=== PATIENT | female | born 1990 | race Caucasian/White ===

== ENCOUNTER 2025-03-17 17:21 | Emergency (ER) | payer MEDICAID, SELFPAY ==
[2025-03-17 17:35] VITALS: BP 136/86; PULSE 84; RESP 18; TEMP 37.2; O2SAT 98; BMI 37.8
--- NOTE | 2025-03-17 17:39 | PD.EDDENTL ---
ED Dental RME/HPI General Chief complaint: Dental/Oral/Throat Stated complaint: ABSCESS MOUTH R SIDE Time Seen by Provider: 03/17/25 17:24 Arrival date/time: 03/17/25 17:21 44-year-old female presents emergency department today with complaints of right upper dental pain reports symptoms ongoing for the last few days patient has seen a dentist and they put her on a prescription for Augmentin today patient reports the symptoms have not improved yet and is requesting a shot there are no other associated symptoms or aggravating factors no other modifying factors, patient denies taking medication before coming to ER today Limitations: no limitations Related Data Home Medications ?Medication ?Instructions ?Recorded ?Confirmed sertraline 100 mg tablet (Zoloft) 100 mg PO QDAY 04/11/19 06/08/19 Previous Rx's ?Medication ?Instructions ?Recorded docusate sodium 100 mg capsule 100 mg PO BID #14 caps 04/11/19 (Doc-Q-Lace) hydrocortisone 2.5 % topical cream 1 applicatio [place] QDAY PRN 04/11/19 with perineal applicator hemorrhoids #30 grams (Anusol-HC) ciprofloxacin HCl 500 mg tablet 500 mg PO BID #14 tabs 06/09/23 (Cipro) clindamycin HCl 150 mg capsule 450 mg (3 x 150 mg) PO TID 7 days 03/17/25 #63 caps Allergies Allergy/AdvReac Type Severity Reaction Status Date / Time No Known Allergies Allergy Verified 03/17/25 17:24 Review of Systems Review of Systems Systems Reviewed: All systems reviewed, normal except as documented Constitutional Constitutional: Reports system reviewed and no additional complaints, except as documented, Denies fatigue, Denies fever(s) and Denies headache(s) Eyes Eyes: Reports system reviewed and no additional complaints, except as documented and Denies blurry vision ENT Ears, Nose, Mouth, and Throat: Reports system reviewed and no additional complaints, except as documented, Denies headache(s), Denies nasal congestion, Denies nasal discharge and Reports other (Poor dentition dental pain) Cardiovascular Cardiovascular: Reports system reviewed and no additional complaints, except as documented, Denies chest pain and Denies dyspnea Respiratory Respiratory: Reports system reviewed and no additional complaints, except as documented, Denies chest congestion, Denies cough and Denies dyspnea Gastrointestinal Gastrointestinal: Reports system reviewed and no additional complaints, except as documented and Denies abdominal pain Genitourinary Genitourinary: Reports system reviewed and no additional complaints, except as documented, Denies flank pain, Denies hematuria and Denies pelvic pain Musculoskeletal Musculoskeletal: Reports system reviewed and no additional complaints, except as documented, Denies abnormal gait, Denies numbness, Denies stiffness and Denies tingling Integumentary/Breasts Skin/Breast: Reports system reviewed and no additional complaints, except as documented and Denies rash Neurologic Neurologic: Reports system reviewed and no additional complaints, except as documented, Reports as per HPI, Denies abnormal gait, Denies headache(s), Denies numbness and Denies tingling Psychiatric Psychiatric: Reports system reviewed and no additional complaints, except as documented and Denies anxiety Endocrine Endocrine: Denies fatigue Past Medical History Past Medical History CARDIAC: Negative Congestive Heart Failure RESPIRATORY: Negative Chronic Obstructive Pulmonary Disease (COPD) GASTROINTESTINAL: Positive Gastrointestinal Disorders (CHOLI) GENITOURINARY: Negative Renal Disease ENDOCRINE: Negative Diabetes Mellitus Type 1 or Diabetes Mellitus Type 2 PSYCHO/SOCIAL: Positive Anxiety Social History SMOKING STATUS: Current every day smoker ED Exam General Limitations: Present no limitations General appearance: Present alert and in no apparent distress Head Head exam: Present atraumatic Eye Eye exam: Present normal appearance, PERRL and EOMI ENT ENT exam: Present mucous membranes moist and other (Poor dentition dental pain) Neck Neck exam: Present normal inspection, full ROM and trachea midline Chest Chest inspection: Present normal inspection and symmetric chest wall rise Respiratory Respiratory exam: Present normal lung sounds bilaterally Cardiovascular Cardiovascular exam: Present regular rate, normal rhythm and normal heart sounds Abdominal Exam Abdominal exam: Present soft and normal bowel sounds Extremities Exam Extremities exam: Present normal inspection and full ROM Back Exam Back exam: Present normal inspection and full ROM Neurological Exam Neurological exam: Present alert, oriented X3 and CN II-XII intact Psychiatric Psychiatric exam: Present normal affect and normal mood Skin Skin exam: Present warm, dry, intact and normal color Course Quality Measures none Orders Category Date Time Status Lidocaine 1% 20 ml [Xylocaine 1% 20 ML] Med 03/17/25 17:39 Discontinued 2.1 ml INFL X1 ONE cefTRIAXone [Rocephin] Med 03/17/25 17:39 Discontinued 1,000 mg IM X1 ONE Vital Signs Vital signs: Vital Signs Temperature 99.0 F 03/17/25 17:35 Pulse Rate 84 03/17/25 17:35 Respiratory Rate 18 03/17/25 17:35 Blood Pressure 136/86 H 03/17/25 17:35 Pulse Oximetry (%) 98 03/17/25 17:35 Oxygen Delivery Method Room Air 03/17/25 17:35 O2 saturation 98% room air within normal limits Dental / Oral MDM Narrative MDM Narrative:: 44-year-old female presents emergency department today with complaints of right upper dental pain reports symptoms ongoing for the last few days patient has seen a dentist and they put her on a prescription for Augmentin today patient reports the symptoms have not improved yet and is requesting a shot there are no other associated symptoms or aggravating factors no other modifying factors, patient denies taking medication before coming to ER today Patient has no trismus no hoarseness of voice no difficulty breathing or swallowing patient hemodynamically stable On exam patient well-appearing patient does not appear ill or toxic in no acute distress Based on symptomatology patient has dental abscess patient given Rocephin and discharged on clindamycin Patient decided to follow-up with dentist soon as possible Patient data External records reviewed:: [facility] previous records Clinical information provided by:: patient Social determinants that could affect healthcare access:: none Patient has the following chronic illnesses:: None How is presenting disease/condition affected by chronic disease/condition?: no chronic disease Evaluation data The following diagnostics were reviewed and interpreted by me:: other (specify) Lab and/or radiology exams considered but not ordered:: Consider not order Interpretation Summary: N/A Medications / Prescriptions Medications or Prescriptions considered but not ordered:: Given Medication administrations:: Medication Administration History Discontinued Medications Ceftriaxone Sodium (Ceftriaxone Sod Inj 1,000 Mg Vial) 1,000 mg IM X1 ONE Stop: 03/17/25 17:40 Last Admin: 03/17/25 17:58 Dose: 1,000 mg Documented By: BRY Lidocaine HCl (Lidocaine Hcl 1% 20 Ml Vial) 2.1 ml INFL X1 ONE Stop: 03/17/25 17:40 Last Admin: 03/17/25 17:59 Dose: 2.1 ml Documented By: BRY Given Consultations Consultation(s) initiated? (list below): No Diagnosis Dental Differential Diagnosis: gingival abscess, dental caries, toothache and dental abscess Most likely diagnosis given after review of the tests above:: Dental abscess Admission Indicated Admission indicated?: not indicated Admission Request Was there a request for admission?: No Disposition Plan Disposition Plan: Discharge Discharge Attestation Discharge Attestation: The patient and all family members were given an opportunity to ask questions and understood the discharge instructions. Discharge instructions specifically effects, indications for sooner follow up or return to the emergency department, and the expected course of current diagnosis. Patient condition: Stable Discharge Plan Plan Patient Disposition: HOME (Self Care) Disposition Comment: Stable Prescriptions/Referrals Prescriptions/Med Rec: New clindamycin HCl 150 mg capsule 450 mg PO TID 7 Days Qty: 63 0RF No Action sertraline [Zoloft] 100 mg Tablet 100 mg PO QDAY docusate sodium [Doc-Q-Lace] 100 mg capsule 100 mg PO BID Qty: 14 0RF hydrocortisone [Anusol-HC] 2.5 % cream with perineal applicator 1 applicatio [place] QDAY PRN (Reason: hemorrhoids) Qty: 30 0RF ciprofloxacin HCl [Cipro] 500 mg tablet 500 mg PO BID Qty: 14 0RF Problem List Clinical Impression: Abscess, dental Patient/Caregiver Discharge Instructions Education Materials: Dental Abscess Additional Instructions: Please follow-up with dentist as discussed for worsening symptoms return immediately Print Language: Monegasque Stand Alone Forms: Shaylee Award Info., Patient Portal Info Letter PA/[employer] Supervising Physician PA/NANETTE Supervising Physician: Dr Lynn
[2025-03-17] MEDS: cefTRIAXone SOD INJ 1,000 MG VIAL 1000 MG IM (17:58)
[2025-03-17] MEDS: LIDOCAINE HCL 1% 20 ML VIAL 2.1 ML INFL (17:59)
== END 2025-03-17 18:01 | disposition home or self-care (01) ==
LOC: SERX 17:57
PROVIDERS: Emergency Provider Emergency Medicine; PCP Physician Assistant
DX: K04.7 Periapical abscess without sinus (principal)
CPT/HCPCS: 96372; 99283; J0696; J3490

== ENCOUNTER 2025-03-19 16:10 | Emergency (ER) | payer MEDICAID, SELFPAY ==
[2025-03-19 16:11] VITALS: BMI 37.8
[2025-03-19 16:29] VITALS: BP 132/88; PULSE 118; RESP 18; TEMP 37.2; O2SAT 99
--- NOTE | 2025-03-19 16:29 | PD.EDDENTL ---
ED Dental RME/HPI General Chief complaint: Allergic Reaction Stated complaint: ALLERGIC REACTION Time Seen by Provider: 03/19/25 16:18 Arrival date/time: 03/19/25 16:10 34-year-old female currently being treated for a dental infection presents to the emergency room today for complaint of right-sided facial swelling patient reports no difficulty breathing or swallowing Limitations: no limitations Related Data Home Medications ?Medication ?Instructions ?Recorded ?Confirmed sertraline 100 mg tablet (Zoloft) 100 mg PO QDAY 04/11/19 06/08/19 Previous Rx's ?Medication ?Instructions ?Recorded docusate sodium 100 mg capsule 100 mg PO BID #14 caps 04/11/19 (Doc-Q-Lace) hydrocortisone 2.5 % topical cream 1 applicatio [place] QDAY PRN 04/11/19 with perineal applicator hemorrhoids #30 grams (Anusol-HC) ciprofloxacin HCl 500 mg tablet 500 mg PO BID #14 tabs 06/09/23 (Cipro) clindamycin HCl 150 mg capsule 450 mg (3 x 150 mg) PO TID 7 days 03/17/25 #63 caps Allergies Allergy/AdvReac Type Severity Reaction Status Date / Time No Known Allergies Allergy Verified 03/19/25 16:13 Review of Systems Review of Systems Systems Reviewed: All systems reviewed, normal except as documented Constitutional Constitutional: Reports system reviewed and no additional complaints, except as documented, Denies fever(s) and Denies headache(s) Eyes Eyes: Reports system reviewed and no additional complaints, except as documented and Denies blurry vision ENT Ears, Nose, Mouth, and Throat: Reports system reviewed and no additional complaints, except as documented, Denies headache(s), Denies nasal congestion, Denies nasal discharge and Reports other (Right-sided facial swelling) Cardiovascular Cardiovascular: Reports system reviewed and no additional complaints, except as documented, Denies chest pain and Denies dyspnea Respiratory Respiratory: Reports system reviewed and no additional complaints, except as documented, Denies chest congestion, Denies cough and Denies dyspnea Gastrointestinal Gastrointestinal: Reports system reviewed and no additional complaints, except as documented and Denies abdominal pain Integumentary/Breasts Skin/Breast: Reports system reviewed and no additional complaints, except as documented and Denies rash Neurologic Neurologic: Reports system reviewed and no additional complaints, except as documented, Reports as per HPI and Denies headache(s) Past Medical History Past Medical History CARDIAC: Negative Congestive Heart Failure RESPIRATORY: Negative Chronic Obstructive Pulmonary Disease (COPD) GASTROINTESTINAL: Positive Gastrointestinal Disorders (CHOLI) GENITOURINARY: Negative Renal Disease ENDOCRINE: Negative Diabetes Mellitus Type 1 or Diabetes Mellitus Type 2 PSYCHO/SOCIAL: Positive Anxiety Social History SMOKING STATUS: Current some day smoker ED Exam General Limitations: Present no limitations General appearance: Present alert and in no apparent distress Head Head exam: Present atraumatic Eye Eye exam: Present normal appearance, PERRL and EOMI ENT ENT exam: Present mucous membranes moist and other (Dental pain right-sided facial swelling) Neck Neck exam: Present normal inspection, full ROM and trachea midline Chest Chest inspection: Present normal inspection and symmetric chest wall rise Respiratory Respiratory exam: Present normal lung sounds bilaterally Cardiovascular Cardiovascular exam: Present regular rate, normal rhythm and normal heart sounds Abdominal Exam Abdominal exam: Present soft and normal bowel sounds Extremities Exam Extremities exam: Present normal inspection and full ROM Back Exam Back exam: Present normal inspection and full ROM Neurological Exam Neurological exam: Present alert, oriented X3 and CN II-XII intact Psychiatric Psychiatric exam: Present normal affect and normal mood Skin Skin exam: Present warm, dry, intact and normal color Course Quality Measures none Orders Category Date Time Status Ibuprofen Tab [Motrin Tab] Med 03/19/25 16:28 Discontinued 800 mg PO X1 ONE Lidocaine 1% 20 ml [Xylocaine 1% 20 ML] Med 03/19/25 16:28 Discontinued 2.1 ml INFL X1 ONE cefTRIAXone [Rocephin] Med 03/19/25 16:28 Discontinued 1,000 mg IM X1 ONE Vital Signs Vital signs: Vital Signs Temperature 99 F 03/19/25 16:29 Pulse Rate 118 H 03/19/25 16:29 Respiratory Rate 18 03/19/25 16:29 Blood Pressure 132/88 H 03/19/25 16:29 Pulse Oximetry (%) 99 03/19/25 16:29 Oxygen Delivery Method Room Air 03/19/25 16:29 O2 saturation 9 9% room air within the limits Dental / Oral MDM Narrative MDM Narrative:: 34-year-old female currently being treated for a dental infection presents to the emergency room today for complaint of right-sided facial swelling patient reports no difficulty breathing or swallowing Reports he is follow-up with dentist on Thursday Patient given an injection of Rocephin here told to continue taking antibiotics at home and return tomorrow for repeat antibiotic injection For emergent concerns patient struck to return immediately Patient data External records reviewed:: [facility] records Clinical information provided by:: patient Social determinants that could affect healthcare access:: none Patient has the following chronic illnesses:: None How is presenting disease/condition affected by chronic disease/condition?: no chronic disease Evaluation data The following diagnostics were reviewed and interpreted by me:: other (specify) Lab and/or radiology exams considered but not ordered:: Consider not ordered Interpretation Summary: N/A Medications / Prescriptions Medications or Prescriptions considered but not ordered:: Given Medication administrations:: Medication Administration History Discontinued Medications Ceftriaxone Sodium (Ceftriaxone Sod Inj 1,000 Mg Vial) 1,000 mg IM X1 ONE Stop: 03/19/25 16:29 Last Admin: 03/19/25 16:49 Dose: 1,000 mg Documented By: BENJAMIN Ibuprofen (Ibuprofen Tab 400 Mg Tablet) 800 mg PO X1 ONE Stop: 03/19/25 16:29 Last Admin: 03/19/25 16:49 Dose: 800 mg Documented By: BENJAMIN Lidocaine HCl (Lidocaine Hcl 1% 20 Ml Vial) 2.1 ml INFL X1 ONE Stop: 03/19/25 16:29 Last Admin: 03/19/25 16:50 Dose: 2.1 ml Documented By: BENJAMIN Given Consultations Consultation(s) initiated? (list below): No Diagnosis Dental Differential Diagnosis: gingival abscess, dental caries, toothache and dental abscess Most likely diagnosis given after review of the tests above:: Dental abscess Admission Indicated Admission indicated?: not indicated Admission Request Was there a request for admission?: No Disposition Plan Disposition Plan: Discharge Discharge Attestation Discharge Attestation: The patient and all family members were given an opportunity to ask questions and understood the discharge instructions. Discharge instructions specifically effects, indications for sooner follow up or return to the emergency department, and the expected course of current diagnosis. Patient condition: Stable Discharge Plan Plan Patient Disposition: HOME (Self Care) Disposition Comment: Stable Prescriptions/Referrals Prescriptions/Med Rec: No Action sertraline [Zoloft] 100 mg Tablet 100 mg PO QDAY docusate sodium [Doc-Q-Lace] 100 mg capsule 100 mg PO BID Qty: 14 0RF hydrocortisone [Anusol-HC] 2.5 % cream with perineal applicator 1 applicatio [place] QDAY PRN (Reason: hemorrhoids) Qty: 30 0RF ciprofloxacin HCl [Cipro] 500 mg tablet 500 mg PO BID Qty: 14 0RF clindamycin HCl 150 mg capsule 450 mg PO TID 7 Days Qty: 63 0RF Problem List Clinical Impression: Abscess, dental Patient/Caregiver Discharge Instructions Education Materials: Dental Abscess Additional Instructions: Please return tomorrow for repeat Rocephin injection and keep your appointment on Thursday with your dentist for worsening symptoms return immediately Print Language: [place] Stand Alone Forms: Shaylee Award Info., Patient Portal Info Letter PA/[employer] Supervising Physician PA/[employer] Supervising Physician: Dr. souza
[2025-03-19] MEDS: IBUPROFEN TAB 400 MG TABLET 800 MG PO (16:49)
[2025-03-19] MEDS: cefTRIAXone SOD INJ 1,000 MG VIAL 1000 MG IM (16:49)
[2025-03-19] MEDS: LIDOCAINE HCL 1% 20 ML VIAL 2.1 ML INFL (16:50)
== END 2025-03-19 17:08 | disposition home or self-care (01) ==
LOC: SERX 16:47
PROVIDERS: Emergency Provider Family Medicine; PCP Family Medicine
DX: K04.7 Periapical abscess without sinus (principal)
CPT/HCPCS: 96372; 99283; J0696; J3490; A9270

== ENCOUNTER 2025-03-20 08:42 | Emergency (ER) | payer MEDICAID, SELFPAY ==
[2025-03-20 08:42] VITALS: BMI 37.8
[2025-03-20 08:55] VITALS: BP 121/79; PULSE 86; RESP 18; TEMP 37.1; O2SAT 98
--- NOTE | 2025-03-20 08:59 | PD.EDALLER ---
ED Allergic Reaction RME/HPI General Chief complaint: Allergic Reaction Stated complaint: ALLERGIC REACTION TO ROCEPHIN Time Seen by Provider: 03/20/25 08:50 Arrival date/time: 03/20/25 08:42 34-year-old female presents the emergency room today for complaints of allergic reaction to Rocephin patient was seen by myself on last visit and given Rocephin for dental infection Limitations: no limitations Related Data Home Medications ?Medication ?Instructions ?Recorded ?Confirmed sertraline 100 mg tablet (Zoloft) 100 mg PO QDAY 04/11/19 06/08/19 Previous Rx's ?Medication ?Instructions ?Recorded docusate sodium 100 mg capsule 100 mg PO BID #14 caps 04/11/19 (Doc-Q-Lace) hydrocortisone 2.5 % topical cream 1 applicatio NE QDAY PRN 04/11/19 with perineal applicator hemorrhoids #30 grams (Anusol-HC) ciprofloxacin HCl 500 mg tablet 500 mg PO BID #14 tabs 06/09/23 (Cipro) clindamycin HCl 150 mg capsule 450 mg (3 x 150 mg) PO TID 7 days 03/17/25 #63 caps diphenhydramine HCl 25 mg capsule 25 mg PO Q8H PRN allergic symptoms 03/20/25 (Benadryl) #30 caps prednisone 10 mg tablet 30 mg (3 x 10 mg) PO BID 3 days 03/20/25 #18 tabs Allergies Allergy/AdvReac Type Severity Reaction Status Date / Time ceftriaxone (From Rocephin) Allergy Severe SWELLING Verified 03/20/25 08:45 OF FACE Review of Systems Review of Systems Systems Reviewed: All systems reviewed, normal except as documented Constitutional Constitutional: Reports system reviewed and no additional complaints, except as documented, Denies fever(s) and Denies headache(s) Eyes Eyes: Reports system reviewed and no additional complaints, except as documented and Denies blurry vision ENT Ears, Nose, Mouth, and Throat: Reports system reviewed and no additional complaints, except as documented, Reports dental pain, Reports facial pain, Denies headache(s), Denies nasal congestion and Denies nasal discharge Cardiovascular Cardiovascular: Reports system reviewed and no additional complaints, except as documented, Denies chest pain and Denies dyspnea Respiratory Respiratory: Reports system reviewed and no additional complaints, except as documented, Denies chest congestion, Denies cough and Denies dyspnea Gastrointestinal Gastrointestinal: Reports system reviewed and no additional complaints, except as documented and Denies abdominal pain Integumentary/Breasts Skin/Breast: Reports system reviewed and no additional complaints, except as documented and Denies rash Neurologic Neurologic: Reports system reviewed and no additional complaints, except as documented, Reports as per HPI and Denies headache(s) Past Medical History Past Medical History CARDIAC: Negative Congestive Heart Failure RESPIRATORY: Negative Chronic Obstructive Pulmonary Disease (COPD) GASTROINTESTINAL: Positive Gastrointestinal Disorders (CHOLI) GENITOURINARY: Negative Renal Disease ENDOCRINE: Negative Diabetes Mellitus Type 1 or Diabetes Mellitus Type 2 PSYCHO/SOCIAL: Positive Anxiety Social History SMOKING STATUS: Current every day smoker ED Exam General Limitations: Present no limitations General appearance: Present alert and in no apparent distress Head Head exam: Present atraumatic Eye Eye exam: Present normal appearance, PERRL and EOMI ENT ENT exam: Present mucous membranes moist and other (Dental pain facial swelling) Neck Neck exam: Present normal inspection, full ROM and trachea midline Chest Chest inspection: Present normal inspection and symmetric chest wall rise Respiratory Respiratory exam: Present normal lung sounds bilaterally Cardiovascular Cardiovascular exam: Present regular rate, normal rhythm and normal heart sounds Abdominal Exam Abdominal exam: Present soft and normal bowel sounds Extremities Exam Extremities exam: Present normal inspection and full ROM Back Exam Back exam: Present normal inspection and full ROM Neurological Exam Neurological exam: Present alert, oriented X3, CN II-XII intact, normal gait and reflexes normal; Absent motor sensory deficit Psychiatric Psychiatric exam: Present normal affect and normal mood Skin Skin exam: Present warm, dry, intact and normal color Course Quality Measures none Orders Category Date Time Status Ampicillin/Sulbac Inj [Unasyn Inj] Med 03/20/25 08:59 Discontinued 3 gm IM X1 ONE Dexamethasone Inj [Decadron Inj] Med 03/20/25 08:59 Discontinued 10 mg PO X1 ONE DiphenhydrAMINE [Benadryl] Med 03/20/25 08:59 Discontinued 25 mg PO X1 ONE Sterile Water Med 03/20/25 09:15 Discontinued 6.4 ml IM X1 ONE Vital Signs Vital signs: Vital Signs Temperature 98.7 F 03/20/25 08:55 Pulse Rate 86 03/20/25 08:55 Respiratory Rate 18 03/20/25 08:55 Blood Pressure 121/79 03/20/25 08:55 Pulse Oximetry (%) 98 03/20/25 08:55 Oxygen Delivery Method Room Air 03/20/25 08:55 O2 saturation 98% room air within normal limits Allergic Reaction MDM Narrative MDM Narrative:: 34-year-old female presents the emergency room today for complaints of allergic reaction to Rocephin patient was seen by myself on last visit and given Rocephin for dental infection On exam patient has no urticaria or rash I do not believe the patient is having a reaction to the Rocephin rather this is swelling from the infection that she went on [employer] I figured she had an infection based on what it said Clinically patient has no difficulty breathing or swallowing patient does have swelling of her face Patient given dose of Unasyn here instructed to follow-up with dentist tomorrow after worsening symptoms to return immediately Patient data External records reviewed:: [facility] previous records Clinical information provided by:: patient Social determinants that could affect healthcare access:: none Patient has the following chronic illnesses:: See history How is presenting disease/condition affected by chronic disease/condition?: exacerbated by Evaluation data The following diagnostics were reviewed and interpreted by me:: other (specify) Lab and/or radiology exams considered but not ordered:: Consider not order Interpretation Summary: N/A Medications / Prescriptions Medications or Prescriptions considered but not ordered:: Given Medication administrations:: Medication Administration History Discontinued Medications Ampicillin Sodium/Sulbactam Sodium (Ampicillin/Sulbac Inj 3 Gm Vial) 3 gm IM X1 ONE Stop: 03/20/25 09:00 Last Admin: 03/20/25 09:23 Dose: 3 gm Documented By: RONEN Dexamethasone Sodium Phosphate (Dexamethasone Sod Phos Inj 10 Mg/Ml Vial) 10 mg PO X1 ONE Stop: 03/20/25 09:00 Last Admin: 03/20/25 09:22 Dose: 10 mg Documented By: LP Diphenhydramine HCl (Diphenhydramine 25 Mg Capsule) 25 mg PO X1 ONE Stop: 03/20/25 09:00 Last Admin: 03/20/25 09:22 Dose: 25 mg Documented By: RONEN Sterile Water (Water, Sterile Inj 10 Ml Vial) 6.4 ml IM X1 ONE Stop: 03/20/25 09:16 Last Admin: 03/20/25 09:23 Dose: 6.4 ml Documented By: LP Given Consultations Consultation(s) initiated? (list below): No Diagnosis Differential Diagnosis allergic reaction: anaphylaxis, allergic reaction, angioedema and contact dermatitis Most likely diagnosis given after review of the tests above:: Facial pain Admission Indicated Admission indicated?: not indicated Admission Request Was there a request for admission?: No Disposition Plan Disposition Plan: Discharge Discharge Attestation Discharge Attestation: The patient and all family members were given an opportunity to ask questions and understood the discharge instructions. Discharge instructions specifically effects, indications for sooner follow up or return to the emergency department, and the expected course of current diagnosis. Patient condition: Stable Discharge Plan Plan Patient Disposition: HOME (Self Care) Disposition Comment: Stable Prescriptions/Referrals Prescriptions/Med Rec: New prednisone 10 mg tablet 30 mg PO BID 3 Days Qty: 18 0RF diphenhydramine HCl [Benadryl] 25 mg capsule 25 mg PO Q8H PRN (Reason: allergic symptoms) Qty: 30 0RF No Action sertraline [Zoloft] 100 mg Tablet 100 mg PO QDAY docusate sodium [Doc-Q-Lace] 100 mg capsule 100 mg PO BID Qty: 14 0RF hydrocortisone [Anusol-HC] 2.5 % cream with perineal applicator 1 applicatio NE QDAY PRN (Reason: hemorrhoids) Qty: 30 0RF ciprofloxacin HCl [Cipro] 500 mg tablet 500 mg PO BID Qty: 14 0RF clindamycin HCl 150 mg capsule 450 mg PO TID 7 Days Qty: 63 0RF Problem List Clinical Impression: Dental infection Patient/Caregiver Discharge Instructions Education Materials: Dental Abscess Additional Instructions: Please follow-up dentist tomorrow as discussed for worsening symptoms return immediately Print Language: Wallisian Stand Alone Forms: Shaylee Award Info., Patient Portal Info Letter PA/ENDOSCOPY TECHNICAN Supervising Physician PA/ENDOSCOPY TECHNICAN Supervising Physician: Dr souza
[2025-03-20] MEDS: DEXAMETHASONE SOD PHOS INJ 10 MG/ML VIAL PO (09:22)
[2025-03-20] MEDS: DiphenhydrAMINE 25 MG CAPSULE PO (09:22)
[2025-03-20] MEDS: WATER, STERILE INJ 10 ML VIAL 6.4 ML IM (09:23)
[2025-03-20] MEDS: AMPICILLIN/SULBAC INJ 3 GM VIAL IM (09:23)
== END 2025-03-20 09:50 | disposition home or self-care (01) ==
LOC: SERX 09:12
PROVIDERS: Emergency Provider Family Medicine; PCP Family Medicine
DX: K04.7 Periapical abscess without sinus (principal)
CPT/HCPCS: 96372; 99283; A4216; J0295; J1100; A9270

== ENCOUNTER 2025-05-20 15:24 | Emergency (ER) | payer MEDICAID, SELFPAY ==
[2025-05-20 15:26] VITALS: BP 104/69; PULSE 58; RESP 18; TEMP 37.1; O2SAT 98
[2025-05-20 15:35] VITALS: PULSE 91; RESP 18; O2SAT 99
--- NOTE | 2025-05-20 16:35 | PD.EDFMALE ---
ED Female Urogenital RME/HPI General Chief complaint: Urogenital-Female Stated complaint: VOMITING AND DIARRHEA Time Seen by Provider: 05/20/25 15:35 Arrival date/time: 05/20/25 15:24 This is a 34-year-old female that comes in with complaints of weakness, abdominal pain and lower back pain. Patient also complains of vomiting and diarrhea. Patient also complains of dysuria. Patient denies past medical history. Patient states she has had unprotected sex and could be Related Data Home Medications ?Medication ?Instructions ?Recorded ?Confirmed sertraline 100 mg tablet (Zoloft) 100 mg PO QDAY 04/11/19 06/08/19 Previous Rx's ?Medication ?Instructions ?Recorded docusate sodium 100 mg capsule 100 mg PO BID #14 caps 04/11/19 (Doc-Q-Lace) hydrocortisone 2.5 % topical cream 1 applicatio [place] QDAY PRN 04/11/19 with perineal applicator hemorrhoids #30 grams (Anusol-HC) ciprofloxacin HCl 500 mg tablet 500 mg PO BID #14 tabs 06/09/23 (Cipro) diphenhydramine HCl 25 mg capsule 25 mg PO Q8H PRN allergic symptoms 03/20/25 (Benadryl) #30 caps Allergies Allergy/AdvReac Type Severity Reaction Status Date / Time No Known Drug Allergies Allergy Verified 05/20/25 15:35 Course Orders Category Date Time Status CBC Stat Lab 05/20/25 16:34 Ordered Comprehensive Metabolic Panel Stat Lab 05/20/25 16:34 Ordered HCG Qualitative,Urine Stat Lab 05/20/25 16:35 Ordered Lipase Stat Lab 05/20/25 16:34 Ordered Urinalysis, C/S if Indicated Stat Lab 05/20/25 16:34 Ordered Vital Signs Vital signs: Vital Signs Temperature 98.7 F 05/20/25 15:26 Pulse Rate 58 L 05/20/25 15:26 Respiratory Rate 18 05/20/25 15:26 Blood Pressure 104/69 05/20/25 15:26 Pulse Oximetry (%) 98 05/20/25 15:26 Oxygen Delivery Method Room Air 05/20/25 15:26 Discharge Plan Prescriptions/Referrals Prescriptions/Med Rec: No Action sertraline [Zoloft] 100 mg Tablet 100 mg PO QDAY docusate sodium [Doc-Q-Lace] 100 mg capsule 100 mg PO BID Qty: 14 0RF hydrocortisone [Anusol-HC] 2.5 % cream with perineal applicator 1 applicatio [place] QDAY PRN (Reason: hemorrhoids) Qty: 30 0RF ciprofloxacin HCl [Cipro] 500 mg tablet 500 mg PO BID Qty: 14 0RF diphenhydramine HCl [Benadryl] 25 mg capsule 25 mg PO Q8H PRN (Reason: allergic symptoms) Qty: 30 0RF Patient/Caregiver Discharge Instructions Print Language: Arabic
--- NOTE | 2025-05-20 16:44 | PD.EDRME ---
Rapid Medical Screening Exam RME Arrival date/time: 05/20/25 15:24 This is a 34-year-old female that comes in with complaints of weakness, abdominal pain and lower back pain. Patient also complains of vomiting and diarrhea. Patient also complains of dysuria. Patient denies past medical history. Patient states she has had unprotected sex and could be I have greeted and performed a focused initial assessment of this patient. Initial appropriate labs ordered at this time. A comprehensive ED assessment and evaluation of the patient and analysis of all test and completion of medical decision making process will be conducted by additional ED provider. Chief Complaint: Urogenital-Female Time Seen by Provider: 05/20/25 15:35 Vital signs: Vital Signs Temperature 98.7 F 05/20/25 15:26 Pulse Rate 58 L 05/20/25 15:26 Respiratory Rate 18 05/20/25 15:26 Blood Pressure 104/69 05/20/25 15:26 Pulse Oximetry (%) 98 05/20/25 15:26 Oxygen Delivery Method Room Air 05/20/25 15:26
[2025-05-20 17:07] LABS: Basophils # (Auto) 0.1 Thou/mm3 (0.0-0.2); Basophils % (Auto) 1 % (0-2.5); Eosinophils # (Auto) 0.1 Thou/mm3 (0.0-0.5); Eosinophils % (Auto) 1 % (0-10); Hematocrit 40.2 % (36.0-46.0); Hemoglobin 14.2 g/dL (12.0-16.0); Immature Granulocytes % (Auto) 0 % (0-0); Immature Granulocytes Auto 0.04 Thou/mm3 (0.00-0.00); Lymphocytes # (Auto) 2.7 Thou/mm3 (1.0-4.8); Lymphocytes % (Auto) 24 % (10-50); Mean Corpuscular HGB Conc 35.3 g/dl (31.0-37.0); Mean Corpuscular Hemoglobin 30.6 pg (25.0-35.0); Mean Corpuscular Volume 87 fL (80-100); Monocytes # (Auto) 0.9 Thou/mm3 (0.0-0.8); Monocytes % (Auto) 8 % (0-12); Neutrophils # (Auto) 7.5 Thou/mm3 (1.8-7.7); Neutrophils % (Auto) 66 % (37-80); Nucleated Red Blood Cell % 0 /100 WBC (0); Platelet Count 272 Thou/mm3 (140-440); RDW Standard Deviation 40.4 fL (36.4-46.3); Red Blood Count 4.64 Miln/mm3 (4.00-5.20); White Blood Count 11.3 Thou/mm3 (3.6-11.0)
[2025-05-20 17:23] LABS: Alanine Aminotransferase 12 U/L (10-49); Albumin, Serum 4.7 gm/dL (3.5-5.0); Albumin/Globulin Ratio 2.1 (1.2-2.2); Alkaline Phosphatase 45 U/L (46-116); Anion Gap 10 (7-16); Aspartate Amino Transferase 17 U/L (0-34); BUN/Creatinine Ratio 19 Ratio (12-20); Bilirubin,Total 1.1 mg/dL (0.3-1.2); Blood Urea Nitrogen 19 mg/dL (9-23); Calcium 9.6 mg/dL (8.3-10.6); Calcium (Corrected) 9.6 mg/dL (8.5-10.1); Carbon Dioxide 25.4 mMol/L (20.0-31.0); Chloride 110 mMol/L (98-107); Globulin 2.2 gm/dL (2.3-3.5); Glucose 112 mg/dL (74-106); Lipase 51 U/L (12-53); Osmolality,Calculated 291 (275-295); Potassium 4.1 mMol/L (3.4-5.1); Sodium 145 mMol/L (136-145); Total Protein 6.9 gm/dL (5.7-8.2); eGFR > 60 See Note
--- NOTE | 2025-05-20 18:39 | PD.EDADDENDU ---
Emergency Room Addendum Addendum Narrative: When I looked for the patient to start my evaluation/treatment, I was told the patient eloped. Emmanuel Washington MD
[2025-05-20 18:51] LABS: Collection Type, Urine Voided
[2025-05-20 18:56] LABS: HCG Qualitative,Urine Negative
[2025-05-20 18:59] LABS: Bilirubin,Urine Negative (Negative); Blood,Urine Negative (Negative); Calcium Oxalate Crystals,Urine 1+; Clarity,Urine Clear (Clear/Hazy); Color,Urine Yellow (Lt Yel-Yel); Culture Indicated,Urine Not Indicated; Glucose, Urine Negative (Negative); Ketones,Urine Trace (Negative); Leukocyte Esterase,Urine Negative (Negative); Nitrite,Urine Negative (Negative); Protein,Urine 1+ (Neg - Trace); RBC,Urine 4 /hpf (0-3); Squamous Epithelial Cell,Urine 2 /hpf (0-5); WBC,Urine 1 /hpf (0-5)
[2025-05-20 19:08] LABS: Specific Gravity,Urine >= 1.030 (1.001-1.035)
== END 2025-05-20 19:05 | disposition left against medical advice (07) ==
PROVIDERS: Nurse Practitioner Family; Emergency Provider Emergency Medicine
DX: R53.1 Weakness (principal); R10.9 Unspecified abdominal pain; M54.50 Low back pain, unspecified; R11.10 Vomiting, unspecified; R19.7 Diarrhea, unspecified; R30.0 Dysuria; Z53.29 Procedure and treatment not carried out because of patient's decision for other reasons
CPT/HCPCS: 36415; 80053; 81001; 81025; 83690; 85025; 99281